=== PATIENT | female | born 1980 | race Caucasian/White ===

== ENCOUNTER 2021-07-17 04:15 | Emergency (ER) | payer OTHER ==
[~2021-07-17 04:15] MED LIST: CARAFATE1 GM PO; CELEXA PO; CETIRIZINE HCL10 MG PO; COCONUT OIL1000 MG PO; COREG 3.125M3.125 MG PO; FLAX SEED OIL1 EACH PO; GABAPENTIN800 MG PO; HYDROCODON-ACE1 EAC6 PO; JANUVIA PO; LASIX20 MG PO; LIPITOR20 MG PO; METFORMIN HCL1000 MG PO; MULTIVITAMINS1 EAC1 PO; NEURONTIN800 MG PO; OMEPRAZOLE 20MG20 MG PO; POTASSIUM CHLO10 ME1 PO; ROBAXIN750 MG PO; SENNA8.6 MG PO; VICODIN 10/3251 EACH PO
== END 2021-07-17 05:24 | disposition home or self-care (01) ==
LOC: FER 04:15
DX: H16.001 Unspecified corneal ulcer, right eye (principal); F17.210 Nicotine dependence, cigarettes, uncomplicated; E11.9 Type 2 diabetes mellitus without complications; Z79.84 Long term (current) use of oral hypoglycemic drugs; Z28.310 Unvaccinated for COVID-19
CPT/HCPCS: 99283